=== PATIENT | male | born 1965 ===

== ENCOUNTER 2021-03-15 11:46 | Outpatient (CLI) | payer OTHER ==
--- NOTE | 2021-03-15 17:06 | Magnetic Resonance Report ---
MRI LEFT SHOULDER WITHOUT CONTRAST INDICATION / CLINICAL INFORMATION: LEFT SHOULDER PAIN. TECHNIQUE: Multiplanar, multisequence MR images were obtained. No contrast used. COMPARISON: None available. FINDINGS: SUPRASPINATUS: Tendinosis and mild peritendinitis but no tear. INFRASPINATUS: No significant abnormality. SUBSCAPULARIS: No significant abnormality. BICEPS TENDON, LONG HEAD: Proximal, intra-articular biceps tendon is not visualized and likely torn a nd retracted into the upper arm. GLENOID LABRUM: Blunting of the superior labrum possibly related to proximal biceps tendon tear. ARTICULAR CARTILAGE: Mild glenohumeral chondrosis and degenerative arthrosis. JOINT SPACE / CAPSULE: No significant abnormality. ACROMION / A.C. JOINT: Moderate hypertrophic acromioclavicular degenerative arthrosis with inferior o steophytes producing encroachment on the rotator cuff. SUBACROMIAL/SUBDELTOID SPACE: Mild subacromial edema. BONES: No significant bone marrow edema. No fracture. No osseous lesion. SOFT TISSUES: No significant abnormality. ADDITIONAL FINDINGS: None. IMPRESSION: 1. Supraspinatus tendinosis and mild peritendinitis but no tear. 2. Tear of the proximal biceps tendon with associated blunting of the superior labrum. 3. Moderate acromioclavicular degenerative arthrosis with encroachment on the rotator cuff. Signer Name: Antonino Levine MD Signed: 03/15/2021 5:02 PM Workstation Name: [id number]
== END 2021-03-15 11:47 | disposition home or self-care (01) ==
LOC: MRI 11:46
PROVIDERS: ATTEND Psychiatry & Neurology Psychiatry
DX: S46.812A Strain of other muscles, fascia and tendons at shoulder and upper arm level, left arm, initial encounter (principal); M19.012 Primary osteoarthritis, left shoulder; X58.XXXA Exposure to other specified factors, initial encounter; Y93.89 Activity, other specified; Y92.89 Other specified places as the place of occurrence of the external cause; Y99.8 Other external cause status